=== PATIENT | female | born 1975 | race Caucasian/White ===

== ENCOUNTER 2016-09-23 08:46 | Inpatient (IN) | payer BC ==
[~2016-09-23] VITALS: Ht 165.1 cm; Wt 72.2 kg
[~2016-09-23 08:46] MED LIST: DOXYCYCLINE MO100 MG PO; ELA25 PO; INS7030 SC; LAC PO; LISINOPRIL10 MG PO; MAC100 PO; NOVI SQ; ONDANSETRON4 M3 PO; ZOCOR10 MG PO
[2016-09-23 10:21] LABS: BASOPHIL % 0.8 % (0-2); PLATELET COUNT 174 x10^3mcL (130-400)
[2016-09-23 10:28] LABS: RED CELL DISTRIBUTION WIDTH 14.9 % (11.5-14.5)
[2016-09-23 10:46] LABS: CALCIUM 8.4 mg/dL (8.5-10.1); CARBON DIOXIDE 24.8 mmol/L (21-32); CHLORIDE SERUM 103 mmol/L (98-107); CREATININE SERUM 0.6 mg/dL (0.6-1.0); GFR1 > 60 mL/min; GLUCOSE SERUM 341 mg/dL (74-106); POTASSIUM SERUM 4.1 mmol/L (3.5-5.1); SODIUM SERUM 136 mmol/L (136-145)
[2016-09-23 10:47] LABS: microscopic required? YES; urine erythrocyte 3+ (NEGATIVE)
[2016-09-23 10:51] LABS: ALBUMIN 3.4 g/dL (3.4-5.0); ALKALINE PHOSPHATASE 78 U/L (46-116); ALT/SGPT 20 U/L (14-59); AST/SGOT 16 U/L (15-37); BILIRUBIN TOTAL 0.29 mg/dL (0.20-1.00); MAGNESIUM 1.8 mg/dL (1.8-2.4); PHOSPHOROUS 2.6 mg/dL (2.5-4.9); TOTAL PROTEIN, SERUM 7.1 g/dL (6.4-8.2)
[2016-09-23 16:06] VITALS: BP 140/62
[2016-09-23 16:08] VITALS: Ht 165.1 cm; Wt 72.2 kg
[2016-09-23 16:39] LABS: CHOLESTEROL/HDL RATIO 4.4
[2016-09-23 16:46] LABS: T3 TOTAL 0.9 ng/mL
[2016-09-23 17:33] LABS: FREE T4 1.12 ng/dL (0.76-1.46); FREE THYROXINE INDEX 2.6 ug/dL (1.4-4.5); T4(THYROXINE) 7.7 ug/dL (4.7-13.3)
[2016-09-23 20:24] LABS: AMPHETAMINE QUAL UR NONE DETECTED (NEG <=1000)
[2016-09-23 22:36] VITALS: BP 137/49
[2016-09-24 00:20] LABS: IRON 20 ug/dL (50-170); TOTAL IRON BINDING CAPACITY 348 ug/dL (250-450)
[2016-09-24 00:34] LABS: RED BLOOD CELLS 4.67 M/mm3 (4.10-5.10)
[2016-09-24 06:03] VITALS: BP 147/54
[2016-09-24 06:34] LABS: CALCIUM 8.1 mg/dL (8.5-10.1); CHLORIDE SERUM 106 mmol/L (98-107); CREATININE SERUM 0.6 mg/dL (0.6-1.0); GFR1 > 60 mL/min; GLUCOSE SERUM 296 mg/dL (74-106); POTASSIUM SERUM 4.2 mmol/L (3.5-5.1); SODIUM SERUM 137 mmol/L (136-145)
[2016-09-24 06:35] LABS: BASOPHIL % 0.5 % (0-2); PLATELET COUNT 166 x10^3mcL (130-400)
[2016-09-24 06:48] LABS: rbc morphology (normal/abnorm) ABNORMAL (NORMAL)
[2016-09-24 09:50] VITALS: BP 149/61
[2016-09-24 17:45] VITALS: BP 142/66
[2016-09-24 21:49] VITALS: BP 145/56
[2016-09-25 05:38] VITALS: BP 153/54
[2016-09-25 06:59] LABS: CALCIUM 8.2 mg/dL (8.5-10.1); CARBON DIOXIDE 25.7 mmol/L (21-32); CHLORIDE SERUM 104 mmol/L (98-107); CREATININE SERUM 0.6 mg/dL (0.6-1.0); GFR1 > 60 mL/min; GLUCOSE SERUM 275 mg/dL (74-106); MAGNESIUM 1.7 mg/dL (1.8-2.4); PHOSPHOROUS 3.6 mg/dL (2.5-4.9); SODIUM SERUM 135 mmol/L (136-145)
[2016-09-25 07:15] LABS: BASOPHIL % 0.4 % (0-2); PLATELET COUNT 167 x10^3mcL (130-400)
[2016-09-25 07:16] LABS: RED CELL DISTRIBUTION WIDTH 14.9 % (11.5-14.5)
[2016-09-25 09:41] VITALS: BP 143/58
[2016-09-25] MEDS ORDERED: ONDANSETRON4 M3 PO (13:50)
[2016-09-25] MEDS ORDERED: TOR10 PO (13:52)
[2016-09-25 14:05] VITALS: BP 143/58
[2016-09-25] MEDS ORDERED: LEVEMIR100 U/M1 SQ (14:40)
[2016-09-25] MEDS ORDERED: MAC100 PO (15:28)
== END 2016-09-25 15:13 | disposition home or self-care (01) | DRG 73 ==
LOC: ED 08:46 → DU 15:02 → MU 15:02 → DU 15:49 → MU 09-24 09:43
PROVIDERS: Emergency Medicine; ADMIT Family Medicine
DX: E11.42 Type 2 diabetes mellitus with diabetic polyneuropathy (principal); N17.0 Acute kidney failure with tubular necrosis; N39.0 Urinary tract infection, site not specified; N10 Acute pyelonephritis; E83.51 Hypocalcemia; D50.9 Iron deficiency anemia, unspecified; K56.41 Fecal impaction; Z79.4 Long term (current) use of insulin; E78.5 Hyperlipidemia, unspecified; I10 Essential (primary) hypertension; Z90.49 Acquired absence of other specified parts of digestive tract; Z88.8 Allergy status to other drugs, medicaments and biological substances; Z83.3 Family history of diabetes mellitus
CPT/HCPCS: 83880; 84439; J0696; J1815; J1885; J2405; J7030; Q0092

== ENCOUNTER 2017-05-12 09:44 | Emergency (ER) | payer BC ==
[~2017-05-12] VITALS: Ht 154.9 cm; Wt 73.0 kg
[~2017-05-12 09:44] MED LIST changes: +LEVEMIR100 U/M1 SQ; +TOR10 PO
[2017-05-12 12:25] VITALS: BP 114/74
== END 2017-05-12 12:25 | disposition home or self-care (01) ==
LOC: ED 09:44
DX: R51 Headache (principal); I10 Essential (primary) hypertension; E11.9 Type 2 diabetes mellitus without complications; E78.00 Pure hypercholesterolemia, unspecified; Z88.5 Allergy status to narcotic agent; Z88.8 Allergy status to other drugs, medicaments and biological substances
CPT/HCPCS: J0780; J1885; J3010

== ENCOUNTER 2017-09-24 18:22 | Inpatient (IN) | payer BC ==
[~2017-09-24] VITALS: Ht 165.1 cm; Wt 74.0 kg
[2017-09-24 18:24] VITALS: Ht 165.1 cm; Wt 74.0 kg
[2017-09-24 21:59] LABS: BASOPHIL % 0.3 % (0-2); PLATELET COUNT 254 x10^3mcL (130-400)
[2017-09-24 22:02] LABS: RED CELL DISTRIBUTION WIDTH 16.9 % (11.5-14.5)
[2017-09-24 22:09] LABS: CALCIUM 8.4 mg/dL (8.5-10.1); CARBON DIOXIDE 25.5 mmol/L (21-32); CHLORIDE SERUM 103 mmol/L (98-107); CREATININE SERUM 0.7 mg/dL (0.6-1.0); GFR1 > 60 mL/min; GLUCOSE SERUM 247 mg/dL (74-106); POTASSIUM SERUM 3.8 mmol/L (3.5-5.1); SODIUM SERUM 137 mmol/L (136-145)
[2017-09-24 22:14] LABS: ALBUMIN 3.3 g/dL (3.4-5.0); ALKALINE PHOSPHATASE 70 U/L (46-116); ALT/SGPT 20 U/L (14-59); AST/SGOT 20 U/L (15-37); TOTAL PROTEIN, SERUM 7.5 g/dL (6.4-8.2)
[2017-09-24 22:34] LABS: T3 TOTAL 1.14 ng/mL
[2017-09-24 22:43] LABS: TOTAL PROTEIN CSF 31.4 mg/dL (15-45)
[2017-09-24 22:55] VITALS: BP 186/59
[2017-09-24 23:07] LABS: APPEARANCE CSF CLEAR; COLOR CSF COLORLESS; WBC CSF 7 /cumm (0-5)
[2017-09-24 23:08] LABS: APPEARANCE CSF CLEAR; COLOR CSF COLORLESS; RBC CSF 230 /cumm (0); RBC CSF 7 /cumm (0); WBC CSF 4 /cumm (0-5)
[2017-09-24 23:26] LABS: MAGNESIUM 1.7 mg/dL (1.8-2.4); PHOSPHOROUS 2.8 mg/dL (2.5-4.9)
[2017-09-24 23:34] LABS: FREE T4 1.05 ng/dL (0.76-1.46); FREE THYROXINE INDEX 2.9 ug/dL (1.4-4.5); T4(THYROXINE) 8.4 ug/dL (4.7-13.3)
[2017-09-25] MEDS ORDERED: LISINOPRIL40 MG PO (00:45)
[2017-09-25] MEDS ORDERED: ZOCOR80 MG PO (00:46)
[2017-09-25 00:49] VITALS: BP 149/58
[2017-09-25 06:09] VITALS: BP 177/63
[2017-09-25 06:12] LABS: BASOPHIL % 0.2 % (0-2); PLATELET COUNT 262 x10^3mcL (130-400)
[2017-09-25 06:27] LABS: CALCIUM 8.7 mg/dL (8.5-10.1); CARBON DIOXIDE 22.9 mmol/L (21-32); CHLORIDE SERUM 101 mmol/L (98-107); CREATININE SERUM 0.7 mg/dL (0.6-1.0); GFR1 > 60 mL/min; GLUCOSE SERUM 303 mg/dL (74-106); MAGNESIUM 2.5 mg/dL (1.8-2.4); PHOSPHOROUS 3.3 mg/dL (2.5-4.9); POTASSIUM SERUM 4.1 mmol/L (3.5-5.1); SODIUM SERUM 135 mmol/L (136-145)
[2017-09-25 06:45] LABS: RED CELL DISTRIBUTION WIDTH 16.2 % (11.5-14.5); rbc morphology (normal/abnorm) ABNORMAL (NORMAL)
[2017-09-25 08:40] VITALS: BP 148/59
[2017-09-25 13:08] VITALS: BP 122/51
[2017-09-25 16:26] VITALS: BP 124/58
[2017-09-25 18:24] LABS: UA SPECIFIC GRAVITY 1.025 (1.005-1.035); microscopic required? YES; urine erythrocyte NEGATIVE (NEGATIVE)
[2017-09-25 18:31] LABS: AMPHETAMINE QUAL UR NONE DETECTED (See below)
[2017-09-25 20:59] VITALS: BP 125/59
[2017-09-26 05:44] LABS: BASOPHIL % 0.5 % (0-2); PLATELET COUNT 219 x10^3mcL (130-400)
[2017-09-26 05:50] VITALS: BP 118/60
[2017-09-26 06:07] LABS: CALCIUM 6.9 mg/dL (8.5-10.1); CARBON DIOXIDE 22.8 mmol/L (21-32); CHLORIDE SERUM 106 mmol/L (98-107); CREATININE SERUM 0.5 mg/dL (0.6-1.0); GFR1 > 60 mL/min; GLUCOSE SERUM 201 mg/dL (74-106); MAGNESIUM 2.1 mg/dL (1.8-2.4); PHOSPHOROUS 2.2 mg/dL (2.5-4.9); POTASSIUM SERUM 3.7 mmol/L (3.5-5.1); SODIUM SERUM 137 mmol/L (136-145)
[2017-09-26 09:33] VITALS: BP 147/64
[2017-09-26] MEDS ORDERED: ELA25 PO (13:05)
[2017-09-26] MEDS ORDERED: REG5 PO (13:08)
[2017-09-26 13:24] VITALS: BP 154/56
[2017-09-26 13:55] VITALS: BP 154/56
== END 2017-09-26 14:52 | disposition home or self-care (01) | DRG 78 ==
LOC: ED 18:22 → DU 21:49
PROVIDERS: Family Medicine; General Practice; Specialist
DX: I67.4 Hypertensive encephalopathy (principal); E44.1 Mild protein-calorie malnutrition; E11.43 Type 2 diabetes mellitus with diabetic autonomic (poly)neuropathy; G90.8 Other disorders of autonomic nervous system; G43.909 Migraine, unspecified, not intractable, without status migrainosus; I10 Essential (primary) hypertension; E78.00 Pure hypercholesterolemia, unspecified; E78.5 Hyperlipidemia, unspecified; E11.65 Type 2 diabetes mellitus with hyperglycemia; K31.84 Gastroparesis; K58.9 Irritable bowel syndrome, unspecified; E83.39 Other disorders of phosphorus metabolism; E83.42 Hypomagnesemia; E02 Subclinical iodine-deficiency hypothyroidism; Z88.5 Allergy status to narcotic agent; Z88.6 Allergy status to analgesic agent; Z83.3 Family history of diabetes mellitus; Z68.27 Body mass index [BMI] 27.0-27.9, adult
CPT/HCPCS: 83880; 84439; 86788; 86789; 87804; J0780; J1200; J1885; J2405; J2550; J2765; J3010; J3475; J7030; J7042; Q0092

== ENCOUNTER 2018-02-25 09:06 | Emergency (ER) | payer BC ==
[~2018-02-25] VITALS: Ht 165.1 cm; Wt 72.6 kg
[~2018-02-25 09:06] MED LIST changes: +LISINOPRIL40 MG PO; +REG5 PO; +ZOCOR80 MG PO
[2018-02-25 09:12] VITALS: Ht 165.1 cm; Wt 72.6 kg
[2018-02-25 10:04] LABS: BASOPHIL % 0.1 % (0-2); PLATELET COUNT 266 x10^3mcL (130-400); RED CELL DISTRIBUTION WIDTH 17.4 % (11.5-14.5)
[2018-02-25 10:08] LABS: CALCIUM 7.7 mg/dL (8.5-10.1); CARBON DIOXIDE 22.8 mmol/L (21-32); CHLORIDE SERUM 103 mmol/L (98-107); CREATININE SERUM 0.6 mg/dL (0.6-1.0); GFR1 > 60 mL/min; GLUCOSE SERUM 177 mg/dL (74-106); POTASSIUM SERUM 3.7 mmol/L (3.5-5.1); SODIUM SERUM 137 mmol/L (136-145)
[2018-02-25 10:13] LABS: ALKALINE PHOSPHATASE 86 U/L (46-116); ALT/SGPT 26 U/L (14-59); AST/SGOT 22 U/L (15-37); BILIRUBIN TOTAL 0.44 mg/dL (0.20-1.00); TOTAL PROTEIN, SERUM 7.5 g/dL (6.4-8.2)
[2018-02-25 10:46] LABS: UA SPECIFIC GRAVITY 1.025 (1.005-1.035); microscopic required? YES; urine erythrocyte 3+ (NEGATIVE)
[2018-02-25 13:22] VITALS: BP 133/66
== END 2018-02-25 13:22 | disposition home or self-care (01) ==
LOC: ED 09:06
PROVIDERS: Emergency Medicine
DX: N39.0 Urinary tract infection, site not specified (principal); E83.51 Hypocalcemia; E11.9 Type 2 diabetes mellitus without complications; I10 Essential (primary) hypertension; E78.00 Pure hypercholesterolemia, unspecified; Z88.5 Allergy status to narcotic agent
CPT/HCPCS: J0696; J2405; J2550; J3010; J7030; Q0092

== ENCOUNTER 2018-02-25 20:10 | Emergency (ER) | payer BC ==
[~2018-02-25] VITALS: Ht 165.1 cm; Wt 72.1 kg
[2018-02-25 22:17] VITALS: BP 118/41
== END 2018-02-25 22:17 | disposition home or self-care (01) ==
LOC: ED 20:10
DX: R11.10 Vomiting, unspecified (principal); R19.7 Diarrhea, unspecified; E78.00 Pure hypercholesterolemia, unspecified; I10 Essential (primary) hypertension; E11.9 Type 2 diabetes mellitus without complications; Z88.5 Allergy status to narcotic agent; Z87.440 Personal history of urinary (tract) infections; Z90.89 Acquired absence of other organs; Z90.49 Acquired absence of other specified parts of digestive tract; Z98.890 Other specified postprocedural states
CPT/HCPCS: 82962; J1885; J2550